=== PATIENT | male | born 1950 | race Caucasian/White ===

== ENCOUNTER 2016-08-04 03:06 | Inpatient (IN) ==
--- NOTE | 2016-07-30 11:34 | EKG Report ---
Test Performed on : 07/30/2016 11:07:58 AM Test Reason : PAT Blood Pressure : / mmHG Vent. Rate : 072 BPM Atrial Rate : 072 BPM P-R Int : 140 ms QRS Dur : 122 ms QT Int : 420 ms P-R-T Axes : 059 015 019 degrees QTc Int : 459 ms Normal sinus rhythm. Right bundle branch block Abnormal ECG No previous ECGs available Confirmed by Henry GILL, Vipul Mathews ([id number]) on 07/31/2016 7:15:43 AM
[2016-07-30 11:35] LABS: MANUAL DIFF NEEDED? NO; URINE MICRO REVIEW NEEDED? NO; URINE SOURCE CLEAN CATCH
[2016-07-30 11:40] LABS: BASO% 1.4 % (0.0-0.8); EOS% 1.5 % (0.0-10.0); HEMATOCRIT 39.4 % (42.0-52.0); HEMOGLOBIN 13.4 g/dL (14.0-18.0); IMM GRAN# 0.02 X1000 (0.0-0.04); IMM GRAN% 0.3 % (0.0-0.5); LYMPH# 1.56 X1000 (1.2-3.4); LYMPH% 24.1 % (20.5-51.1); MCH 29.8 PG (27-31); MCV 87.8 FL (81-99); MONO# 0.68 X1000 (0.11-0.59); MONO% 10.5 % (1.7-9.3); MPV 8.5 FL (7.4-10.4); NEUT% 62.2 % (42.2-75.2); PLT 329 X1000 (130-400); RBC 4.49 XMIL (4.7-6.1)
[2016-07-30 11:42] LABS: BILIRUBIN URINE NEGATIVE (NEGATIVE); BLOOD URINE NEGATIVE (NEGATIVE); COLOR YELLOW; GLUCOSE URINE NEGATIVE (NEGATIVE); LEUKOCYTES URINE NEGATIVE (NEGATIVE); NITRITE URINE NEGATIVE (NEGATIVE); PH URINE 5.5; PROTEIN URINE TRACE mg/dL (NEGATIVE); SP GRAVITY URINE 1.033; TURBIDITY URINE CLEAR (CLEAR); UROBILINOGEN URINE NORMAL (NORMAL)
[2016-07-30 11:44] LABS: UR EPITHELIAL CELLS <10 /HPF (<10); URINE BACTERIA NEGATIVE /HPF; URINE RBC <10 /HPF (<10); URINE WBC <10 /HPF (<10)
[2016-07-30 11:51] LABS: INR 0.98; PROTIME 10.3 Seconds (9.2-11.7)
[2016-07-30 12:06] LABS: AGAP 13; BUN 18 mg/dL (8-22); CALCIUM 8.8 mg/dL (8.8-10.2); CHLORIDE 102 mmol/L (98-107); COSMO 283; POTASSIUM 4.6 mmol/L (3.5-5.1); SODIUM 141 mmol/L (136-145); TCO2 26 mmol/L (25-35)
[2016-08-04] MEDS ORDERED: NORCO-10 PO PRN (07:05)
[2016-08-04] MEDS ORDERED: MORPHINE IV PRN (07:06)
[2016-08-04] MEDS ORDERED: COLACE ONE (09:13)
[2016-08-04] MEDS ORDERED: PEPCID ONE (09:14)
[2016-08-04] MEDS ORDERED: REGLAN ONE (09:14)
[2016-08-04] MEDS ORDERED: CELEBREX ONE (09:14)
[2016-08-04] MEDS ORDERED: LR 1,000 ML ONE ×2 (09:14→13:31)
[2016-08-04] MEDS ORDERED: LYRICA ONE (09:14)
[2016-08-04] MEDS ORDERED: KEFZOL 2 GM/D5W 2 GM/50 ML IVPB ONE (09:14)
[2016-08-04] MEDS: CELEBREX PO SCH (09:27)
[2016-08-04] MEDS ORDERED: TORADOL ONE (10:29)
[2016-08-04] MEDS ORDERED: VANCOMYCIN ONE (10:29)
[2016-08-04] MEDS ORDERED: CYKLOKAPRON 1,000 MG/NS 1,000 MG/100 ML IVPB ONE ×2 (10:29→11:14)
[2016-08-04] MEDS ORDERED: MARCAINE 0.25% PF/EPI 1:200,000 ONE (10:29)
[2016-08-04] MEDS ORDERED: SODIUM CHLORIDE 0.9% ONE (10:29)
[2016-08-04] MEDS ORDERED: EXPAREL 1.3% ONE (10:30)
[2016-08-04] MEDS ORDERED: NEOSPORIN G.U. IRRIGANT ONE (10:30)
[2016-08-04 11:49] LABS: URINE MICRO REVIEW NEEDED? NO; URINE SOURCE CATH
[2016-08-04 11:54] LABS: BILIRUBIN URINE NEGATIVE (NEGATIVE); BLOOD URINE NEGATIVE (NEGATIVE); COLOR YELLOW; GLUCOSE URINE NEGATIVE (NEGATIVE); LEUKOCYTES URINE NEGATIVE (NEGATIVE); NITRITE URINE NEGATIVE (NEGATIVE); PH URINE 5.5; PROTEIN URINE NEGATIVE (NEGATIVE); SP GRAVITY URINE 1.023; TURBIDITY URINE CLEAR (CLEAR); UROBILINOGEN URINE NORMAL (NORMAL)
[2016-08-04 11:56] LABS: UR EPITHELIAL CELLS <10 /HPF (<10); URINE BACTERIA NEGATIVE /HPF; URINE RBC <10 /HPF (<10); URINE WBC <10 /HPF (<10)
[2016-08-04] MEDS ORDERED: DIPRIVAN 1% ONE (12:27)
[2016-08-04] MEDS ORDERED: VERSED ONE (12:27)
[2016-08-04] MEDS ORDERED: FENTANYL ONE (12:27)
[2016-08-04] MEDS ORDERED: NS 1,000 ML ONE (12:49)
--- NOTE | 2016-08-04 12:57 | Diag Imaging Result Doc PS360 ---
KNEE 1-2 VIEWS-LEFT - 08/04/2016 1:00 PM TOTAL KNEE ARTHROPLASTY COMPARISON: None FINDINGS: There has been left total knee arthroplasty. Alignment is anatomic. No hardware fracture or loosening. IMPRESSION: No evidence of complication. Electronically signed by Celestino Levy 08/04/2016 12:54 PM
--- NOTE | 2016-08-04 13:08 | HISTORY AND PHYSICAL ---
CHIEF COMPLAINT: Left knee pain. HISTORY OF PRESENT ILLNESS: Mr. Newman is a 65-year-old, white male who has experienced progressive left knee pain for some time. His pain is worse with weightbearing activities and exercise. Radiographic evaluation of the left knee reveals findings consistent with advanced degenerative joint disease. Despite conservative therapy, he still has a significant reduction in his ability to conduct his normal daily activities, and will be admitted at this time for a left total knee arthroplasty. PRIMARY CARE PROVIDER: Dr. Chico Jimenez. ALLERGIES: Lidocaine. PAST MEDICAL HISTORY: 1. Osteoarthritis. 2. Allergic rhinitis. PAST SURGICAL HISTORY: 1. Right inguinal herniorrhaphy. 2. Sinus surgeries. SOCIAL HISTORY: The patient is . He is a nonsmoker. He maintains a home with his . CURRENT MEDICATIONS: 1. Ultram 50 mg 3 times a day. 2. Claritin 10 mg daily. 3. Celebrex 200 mg by mouth daily. REVIEW OF SYSTEMS: HEENT: He has a history of allergic rhinitis. Cardiac: No history of heart disease or valvular heart disease. Denies chest pain, pressure, or other anginal equivalents. Pulmonary: The patient is a nonsmoker with no chronic lung disease. Gastrointestinal: No recent weight loss or weight gain. Denies nausea, vomiting, diarrhea, or constipation. Genitourinary: Not examined. Neurological: Denies extremity radicular pain, weakness or paresthesia. Musculoskeletal: He is here today for left knee osteoarthritis. PHYSICAL EXAMINATION: GENERAL: The patient is resting comfortably in bed. He is articulate and able answer all questions fully. HEENT: Head is normocephalic and atraumatic. Pupils are equal, round, react to light. Nares are patent. Throat without exudate. NECK: Supple. HEART: Regular rate and rhythm. No murmurs, gallops, or rubs. LUNGS: Clear to auscultation bilaterally. ABDOMEN: Round. Bowel sounds are present. It is nontender. GENITOURINARY: Not examined. NEUROLOGICAL: He discerns soft touch in the affected extremity. Gross motor function is intact. MUSCULOSKELETAL: Left knee: He does have some deformity to the knee. Range of motion is limited. He has tenderness with weightbearing. Neurovascular status is intact with a good peripheral pulse. IMPRESSION: Degenerative joint disease of the left knee. PLAN: Left total knee arthroplasty. The risks and benefits of surgery were explained to the patient including the risk of anesthesia, , bleeding, infection, damage to tendons, nerves, ligaments, blood vessels, the possibility of other imponderables were discussed, and the patient wishes to proceed with operative management at this time. Dictated by EDDIE Mcneill for Cuauhtemoc Lopez MD cc: EDDIE Mcneill MD
[2016-08-04] MEDS ORDERED: OFIRMEV 1000 MG/ISOTONIC SOLN 1,000 MG/100 ML BOTTLE ONE (13:30)
[2016-08-04] MEDS ORDERED: ROBINUL ONE (13:30)
[2016-08-04] MEDS ORDERED: EPHEDRINE ONE (13:30)
[2016-08-04] MEDS ORDERED: DECADRON ONE (13:31)
--- NOTE | 2016-08-04 14:10 | OPERATIVE NOTE ---
PROCEDURE DATE: 08/04/2016 PREOPERATIVE DIAGNOSIS: Degenerative joint disease of the left knee. POSTOPERATIVE DIAGNOSIS: Degenerative joint disease of the left knee. PROCEDURE: Left knee replacement. SURGEON: Hollis Lopez MD DIP TANKER: EDDIE Mcneill ANESTHESIA: Spinal. COMPLICATION: None. PROCEDURE IN DETAIL: This 65-year-old male presents for left knee replacement. Risks, benefits, and no guarantees were discussed with the patient preoperatively, and he is willing to proceed. He was taken to the operating room and satisfactory anesthesia obtained. The left knee was prepped and draped in usual sterile fashion. A time-out was taken to confirm operative site, procedure, and patient. The leg was wrapped with an Esmarch. Tourniquet inflated to 350 mmHg. The leg was approached through a midline anterior incision and dissection carried down and a medial arthrotomy made. The patella was then resurfaced with freehand technique and subluxed laterally. The knee was flexed, an intramedullary hole made in the distal femur and the distal femoral cutting block secured in 5 degrees of valgus. Femoral resection was then made and the femur sized to a DePuy Attune size 7 femoral component. The 4 in 1 block was secured and the anterior, posterior, and chamfer cuts sequentially made. Care was taken to preserve the PCL and collateral ligaments. Any osteophytes were debrided about the femur. With the knee flexed and a PCL retractor behind the tibia to protect the PCL and neurovascular bundle, the tibial cutting block was secured and the tibial resection made. The flexion extension gap was noted to be roughly equal. The tibia was sized to a size 7 tibial base plate. Trial reduction was performed with a 7 rotating platform base plate and 7 cruciate retaining femoral component, and a 12 mm poly with good stability. The patella was then sized to a 38 medialized dome patella. The drill holes were placed for the patella and femoral component and the trial components removed. The bony surfaces were then irrigated with pulsatile lavage. Cement with a gram of vancomycin was then utilized to cement a DePuy Attune size 7 rotating platform base plate, a size 7 left cruciate- retaining femoral component, and a 38 medialized dome patella. While the cement cured, excess cement was removed with a [place] elevator and the joint capsule injected with Exparel for pain management. A Hemovac drain was placed and brought out through the anterolateral retinaculum. The arthrotomy was then copiously irrigated with irrigant. A size 7, 12 mm thick posterior cruciate retaining poly was then placed in the tibial tray and the knee reduced. Final range of motion was 0-120 degrees with excellent soft tissue balance and midline patellar tracking. Afterwards, the arthrotomy was closed over the drain with #1 Vicryl in the arthrotomy, 2-0 Vicryl in the subcutaneous, and skin laith on the skin edges. Sterile dressings completed the closure and the patient was recovered from anesthesia and transferred to the recovery room in stable condition. No intraoperative complications were noted. Instrument count and sponge count was correct at the time of closure. cc: Cuauhtemoc Lopez MD
[2016-08-04] MEDS: MORPHINE ONE ×3 (15:06→15:21)
[2016-08-04] MEDS: ULTRAM PO SCH ×3 (16:13→16:39)
[2016-08-04] MEDS: NS 1,000 ML IV SCH (16:14)
[2016-08-04] MEDS: CLARITIN PO SCH (16:39)
[2016-08-04] MEDS: COLACE PO SCH ×2 (16:40→20:25)
[2016-08-04] MEDS: KEFZOL 1 GM/D5W 1 GM/50 ML IVPB IV SCH (18:34)
[2016-08-04] MEDS: NORCO-10 PO PRN ×2 (20:25→23:46)
[2016-08-04] MEDS: PERIDEX MT SCH (20:25)
[2016-08-05] MEDS: NS 1,000 ML IV SCH ×2 (01:46→08:30)
[2016-08-05] MEDS: KEFZOL 1 GM/D5W 1 GM/50 ML IVPB IV SCH (01:46)
[2016-08-05] MEDS: NORCO-10 PO PRN ×3 (04:27→14:17)
[2016-08-05 05:37] LABS: HEMATOCRIT 33.2 % (42.0-52.0); HEMOGLOBIN 11.1 g/dL (14.0-18.0)
[2016-08-05 05:51] LABS: AGAP 9; BUN 19 mg/dL (8-22); CALCIUM 8.4 mg/dL (8.8-10.2); CHLORIDE 103 mmol/L (98-107); COSMO 278; POTASSIUM 4.2 mmol/L (3.5-5.1); SODIUM 137 mmol/L (136-145); TCO2 25 mmol/L (25-35)
[2016-08-05] MEDS ORDERED: XARELTO PO SCH (06:00)
[2016-08-05] MEDS: ULTRAM PO SCH ×2 (09:07→14:17)
[2016-08-05] MEDS: CELEBREX PO SCH (09:07)
[2016-08-05] MEDS: CLARITIN PO SCH (09:07)
[2016-08-05] MEDS: COLACE PO SCH (09:07)
[2016-08-05] MEDS: PERIDEX MT SCH (09:07)
[2016-08-05] MEDS ORDERED: ZOFRAN IV PRN (10:27)
[2016-08-05 11:24] VITALS: BP 108/69
--- NOTE | 2016-08-06 05:35 | DISCHARGE SUMMARY ---
ADMISSION DATE: 08/04/2016 DISCHARGE DATE: 08/05/2016 ADMITTING DIAGNOSIS: Degenerative joint disease of the left knee. ADDITIONAL DIAGNOSES: Allergic rhinitis and osteoarthritis. DISCHARGE DIAGNOSES: 1. Degenerative joint disease of the left knee. 2. Allergic rhinitis and osteoarthritis. ADMITTING HISTORY AND HOSPITAL COURSE: Mr. Newman is a 65-year-old white male with a history of left knee pain for some time now. He was admitted to the hospital yesterday for a left total knee arthroplasty. After his surgery, he remained afebrile, his vital signs remained stable, and he is currently ambulating about 250 feet with a front-wheeled walker. There are no signs and symptoms of infection or DVT. We plan to send him home today with home health coming out to work with him in his home. DISCHARGE MEDICATIONS: 1. Claritin 10 mg p.o. daily. 2. Ultram 50 mg p.o. t.i.d. p.r.n. 3. Celebrex 200 mg p.o. daily. 4. Xarelto 10 mg p.o. daily for 14 days. 5. [place] 10 1-2 p.o. q.4-6 hours p.r.n. for pain. DISCHARGE INSTRUCTIONS: Mr. Newman is to discharge home today, where he will begin a home physical therapy regimen. I went over the home medications that he will be discharging on, as well as the indications and the possible side effects. He understands that. We discussed with him if he has any worsening signs or symptoms, to call us back at the office and let us know immediately. He will need to follow up with Dr. Lopez in about 10 days to have his laith removed and his routine followup appointment. Dictated by DAVID Melendez for Cuauhtemoc Lopez MD cc: DAVID Melendez MD
== END 2016-08-05 14:30 | disposition home health service (06) ==
LOC: SURHOLD 03:06 → EDSTATUS 08:30 → 4N 15:33
PROVIDERS: ADMIT Orthopaedic Surgery Adult Reconstructive Orthopaedic Surgery; ATTEND Orthopaedic Surgery Adult Reconstructive Orthopaedic Surgery

== ENCOUNTER 2016-10-06 02:54 | Inpatient (IN) ==
[2016-09-29 10:52] LABS: MANUAL DIFF NEEDED? NO; URINE MICRO REVIEW NEEDED? NO; URINE SOURCE CLEAN CATCH
[2016-09-29 11:08] LABS: BASO% 0.9 % (0.0-0.8); EOS# 0.08 X1000 (0.0-0.7); EOS% 1.2 % (0.0-10.0); HEMATOCRIT 39.5 % (42.0-52.0); IMM GRAN# 0.02 X1000 (0.0-0.04); IMM GRAN% 0.3 % (0.0-0.5); LYMPH# 1.35 X1000 (1.2-3.4); LYMPH% 19.9 % (20.5-51.1); MCH 28.6 PG (27-31); MCHC 32.9 g/dL (33-37); MONO# 0.68 X1000 (0.11-0.59); MPV 8.6 FL (7.4-10.4); NEUT% 67.7 % (42.2-75.2); PLT 347 X1000 (130-400); RBC 4.54 XMIL (4.7-6.1)
[2016-09-29 11:13] LABS: BILIRUBIN URINE NEGATIVE (NEGATIVE); BLOOD URINE NEGATIVE (NEGATIVE); COLOR YELLOW; GLUCOSE URINE NEGATIVE (NEGATIVE); LEUKOCYTES URINE NEGATIVE (NEGATIVE); NITRITE URINE NEGATIVE (NEGATIVE); PROTEIN URINE NEGATIVE (NEGATIVE); SP GRAVITY URINE 1.009; TURBIDITY URINE CLEAR (CLEAR); UROBILINOGEN URINE NORMAL (NORMAL)
[2016-09-29 11:14] LABS: UR EPITHELIAL CELLS <10 /HPF (<10); URINE BACTERIA NEGATIVE /HPF; URINE RBC <10 /HPF (<10); URINE WBC <10 /HPF (<10)
[2016-09-29 11:19] LABS: INR 0.97; PROTIME 10.2 Seconds (9.2-11.7); PTT 29.2 Seconds (22.0-36.0)
[2016-09-29 11:30] LABS: AGAP 10; BUN 13 mg/dL (8-22); CALCIUM 9.6 mg/dL (8.8-10.2); CHLORIDE 99 mmol/L (98-107); COSMO 276; POTASSIUM 4.6 mmol/L (3.5-5.1); SODIUM 138 mmol/L (136-145); TCO2 29 mmol/L (25-35)
--- NOTE | 2016-09-29 12:34 | EKG Report ---
Test Performed on : 09/29/2016 10:16:37 AM Test Reason : PAT Blood Pressure : / mmHG Vent. Rate : 057 BPM Atrial Rate : 057 BPM P-R Int : 144 ms QRS Dur : 126 ms QT Int : 450 ms P-R-T Axes : 076 018 012 degrees QTc Int : 438 ms Sinus bradycardia. Right bundle branch block Abnormal ECG When compared with ECG of 30-JUL-2016 11:07, No significant change was found Confirmed by Du Brown MD ([id number]) on 09/29/2016 2:08:30 PM
[2016-10-06] MEDS ORDERED: KEFZOL 2 GM/D5W 2 GM/50 ML IVPB ONE (05:58)
[2016-10-06] MEDS ORDERED: COLACE ONE (05:58)
[2016-10-06] MEDS ORDERED: PEPCID ONE (05:58)
[2016-10-06] MEDS ORDERED: CELEBREX ONE (05:58)
[2016-10-06] MEDS ORDERED: LR 1,000 ML ONE (05:58)
[2016-10-06] MEDS ORDERED: LYRICA ONE (05:58)
[2016-10-06] MEDS ORDERED: REGLAN ONE (05:58)
[2016-10-06] MEDS ORDERED: DIPRIVAN 1% ONE (06:31)
[2016-10-06] MEDS ORDERED: DURAMORPH ONE (06:54)
[2016-10-06] MEDS ORDERED: TORADOL ONE (06:55)
[2016-10-06] MEDS ORDERED: SENSORCAINE 0.25%/EPI 1:200,000 ONE (06:55)
[2016-10-06] MEDS ORDERED: VANCOMYCIN ONE (06:55)
[2016-10-06] MEDS ORDERED: EXPAREL 1.3% ONE (06:56)
[2016-10-06] MEDS ORDERED: NEOSPORIN G.U. IRRIGANT ONE (06:56)
[2016-10-06] MEDS ORDERED: CYKLOKAPRON 1,000 MG/NS 1,000 MG/100 ML IVPB ONE ×2 (06:56→06:57)
[2016-10-06] MEDS ORDERED: SODIUM CHLORIDE 0.9% ONE (06:56)
[2016-10-06] MEDS ORDERED: MORPHINE IV PRN ×2 (07:03→08:52)
[2016-10-06] MEDS ORDERED: VERSED ONE ×2 (07:20→07:28)
[2016-10-06] MEDS ORDERED: FENTANYL ONE (07:20)
[2016-10-06] MEDS ORDERED: OFIRMEV 1000 MG/ISOTONIC SOLN 1,000 MG/100 ML BOTTLE ONE (07:27)
[2016-10-06] MEDS ORDERED: DECADRON ONE ×2 (07:57→08:42)
[2016-10-06 08:24] LABS: URINE MICRO REVIEW NEEDED? NO; URINE SOURCE CATH
[2016-10-06 08:30] LABS: BILIRUBIN URINE NEGATIVE (NEGATIVE); BLOOD URINE NEGATIVE (NEGATIVE); COLOR YELLOW; GLUCOSE URINE NEGATIVE (NEGATIVE); LEUKOCYTES URINE NEGATIVE (NEGATIVE); NITRITE URINE NEGATIVE (NEGATIVE); PH URINE 5.5; PROTEIN URINE TRACE mg/dL (NEGATIVE); SP GRAVITY URINE 1.022; TURBIDITY URINE CLEAR (CLEAR); UR EPITHELIAL CELLS <10 /HPF (<10); URINE BACTERIA NEGATIVE /HPF; URINE RBC <10 /HPF (<10); URINE WBC <10 /HPF (<10); UROBILINOGEN URINE NORMAL (NORMAL)
[2016-10-06] MEDS ORDERED: NS 1,000 ML ONE (09:52)
[2016-10-06] MEDS: NORCO-10 PO PRN ×5 (13:07→22:17)
[2016-10-06] MEDS: COLACE PO SCH ×2 (13:09→20:42)
[2016-10-06] MEDS: CELEBREX PO SCH (13:09)
[2016-10-06] MEDS: ULTRAM PO SCH ×2 (13:10→20:43)
[2016-10-06] MEDS: PROTONIX PO SCH (13:13)
[2016-10-06] MEDS: CLARITIN PO SCH (13:13)
[2016-10-06] MEDS: SINGULAIR PO SCH (13:13)
[2016-10-06] MEDS: KEFZOL 1 GM/D5W 1 GM/50 ML IVPB IV SCH ×2 (15:22→22:17)
[2016-10-06] MEDS: NS 1,000 ML IV SCH ×3 (15:24→23:01)
--- NOTE | 2016-10-06 15:45 | Diag Imaging Result Doc PS360 ---
KNEE 1-2 VIEWS-RIGHT - 10/06/2016 INDICATION: tka TECHNIQUE: Two views COMPARISON: None FINDINGS: There has been right total knee arthroplasty. Alignment is anatomic. No hardware fracture or loosening. IMPRESSION: No evidence of complication. Electronically signed by Celestino Levy 10/06/2016 3:42 PM
--- NOTE | 2016-10-06 17:06 | OPERATIVE NOTE ---
PROCEDURE DATE: 10/06/2016 PREOPERATIVE DIAGNOSIS: Degenerative joint disease, right knee. POSTOPERATIVE DIAGNOSIS: Degenerative joint disease, right knee. PROCEDURE: Right total knee replacement. SURGEON: Hollis Lopez MD. PAINT DIPPER: Rich Pastrana. ANESTHESIA: Spinal. COMPLICATION: None. PROCEDURE IN DETAIL: A 65-year-old male presents for right knee replacement. Risks, benefits, and no guarantees were discussed, and the patient is willing to proceed. He was taken the operating room and satisfactory anesthesia obtained. The right leg was prepped and draped in usual sterile fashion. A time-out was taken to confirm operative site, procedure, and patient. The leg was then wrapped with an Esmarch tourniquet, inflated to 350 mmHg. An incision was made over the front of the knee followed by a quad tendon-sparing arthrotomy. The patella was everted and resurfaced with freehand technique. With the patella subluxed laterally, the knee was flexed. An intramedullary hole made in the distal femur and the distal femoral cutting block secured in 5 degrees of valgus. The distal femoral resection was then made and the femur sized to a DePuy Attune size 7 femoral component. The 4-in-1 block was secured and the anterior, posterior, and chamfer cuts sequentially made. Care was taken to preserve the PCL as well as the collateral ligaments. Any remaining osteophytes were debrided about the femur. The knee was flexed and tibial cutting block secured using extramedullary alignment rods and tibial resection made. Flexion and extension gaps were slightly tightened and additional 2 mm taken off the tibia. The tibia was then sized to a size 7 tibial tray. A trial reduction was performed with a 7 tibial tray. A 6 mm poly and a 7 cruciate retaining femoral component. Good range of motion and stability of the knee was achieved. The trial implants were removed and the bony surfaces thoroughly irrigated with pulsatile lavage. Cement with a gram of vancomycin was then utilized to cement a DePuy Attune size 7 rotating platform tibial tray, a size 7 cruciate-retaining right femoral component, and a 38 medialized dome patella. While the cement cured, excess cement was removed with a [place] elevator. The joint capsule was injected with Exparel for pain management. A Hemovac drain was placed. After curing the cement, a trial poly was repositioned and noted to have good range of motion with the 6 mm poly. The trial poly was removed and a size 7, 6 mm thick cruciate retaining polyethylene inserted in the tibial tray and the knee reduced. Final range of motion was assessed with 0-130 degrees and midline patellar tracking. The arthrotomy was then copiously irrigated with irrigant and closed over the drain with #1 Vicryl in the arthrotomy, 2- 0 Vicryl in the subcutaneous, and skin laith on the skin edges. Sterile dressings completed the closure and the patient was recovered from anesthesia and transferred to the recovery room in stable condition. No intraoperative complications were noted. Instrument count and sponge count was correct at the time of closure. cc: Cuauhtemoc Lopez MD
--- NOTE | 2016-10-06 17:14 | PROGRESS NOTE ---
DATE: 10/06/2016 Mr. Newman is seen today for followup of his knee replacement. He is doing well at the present time. He has no complaints. He is afebrile with stable vital signs. Bandage is clean and dry. There is no evidence of DVT. He is motor and sensory intact with good capillary refill. He is stable at the present time. cc: Cuauhtemoc Lopez MD
[2016-10-06] MEDS: PERIDEX MT SCH (20:43)
[2016-10-07] MEDS: NORCO-10 PO PRN ×3 (03:06→12:35)
[2016-10-07 05:37] LABS: HEMATOCRIT 31.1 % (42.0-52.0); HEMOGLOBIN 9.8 g/dL (14.0-18.0)
[2016-10-07] MEDS ORDERED: XARELTO PO SCH (06:00)
[2016-10-07 06:08] LABS: AGAP 12; BUN 17 mg/dL (8-22); CHLORIDE 105 mmol/L (98-107); COSMO 286; POTASSIUM 4.6 mmol/L (3.5-5.1); SODIUM 142 mmol/L (136-145); TCO2 25 mmol/L (25-35)
[2016-10-07] MEDS: SINGULAIR PO SCH (08:40)
[2016-10-07] MEDS: PROTONIX PO SCH (08:41)
[2016-10-07] MEDS: PERIDEX MT SCH (08:41)
[2016-10-07] MEDS: CELEBREX PO SCH (08:41)
[2016-10-07] MEDS: CLARITIN PO SCH (08:41)
[2016-10-07] MEDS: COLACE PO SCH (08:41)
[2016-10-07] MEDS: ULTRAM PO SCH (08:42)
[2016-10-07 11:12] VITALS: BP 102/61
--- NOTE | 2016-10-08 08:50 | DISCHARGE SUMMARY ---
ADMISSION DATE: 10/06/2016 DISCHARGE DATE: 10/07/2016 ADMITTING DIAGNOSIS: Degenerative joint disease of the knee. ADDITIONAL DIAGNOSIS: None. ADMITTING HISTORY AND HOSPITAL COURSE: This is a 65-year-old male who was admitted to the hospital for DJD of the right knee. He underwent a right knee replacement without complication. Postoperatively, he mobilized well and remained afebrile. At the present time, he is stable with no signs of infection or DVT. He is discharged home after therapy today for outpatient followup. DISCHARGE MEDICATIONS: Include Celebrex 200 mg daily, [place] 10 one to two every 4-6 hours p.r.n. pain, Xarelto 10 mg daily. DISCHARGE INSTRUCTIONS: He is to receive home therapy. He is to follow up with me in roughly 12 days. He can return in the interim for any worsening signs or symptoms. cc: Cuauhtemoc Lopez MD
== END 2016-10-07 13:32 | disposition home health service (06) ==
LOC: SURHOLD 02:54 → 4N 08:47
PROVIDERS: ADMIT Orthopaedic Surgery Adult Reconstructive Orthopaedic Surgery; ATTEND Orthopaedic Surgery Adult Reconstructive Orthopaedic Surgery